=== PATIENT | female | born 1935 | race Caucasian/White ===

== ENCOUNTER 2017-08-09 20:25 | Emergency (ER) | payer OTHER, MEDICAID ==
[~2017-08-09] VITALS: Ht 162.6 cm; Wt 72.1 kg
[2017-08-09 20:36] VITALS: Ht 162.6 cm; Wt 72.1 kg
[2017-08-09 23:06] VITALS: BP 147/62
== END 2017-08-09 23:10 | disposition home or self-care (01) ==
LOC: ED 20:25
DX: S01.311A Laceration without foreign body of right ear, initial encounter (principal); I25.2 Old myocardial infarction; I10 Essential (primary) hypertension; E11.9 Type 2 diabetes mellitus without complications; W01.0XXA Fall on same level from slipping, tripping and stumbling without subsequent striking against object, initial encounter; Y93.89 Activity, other specified; Y92.89 Other specified places as the place of occurrence of the external cause; Y99.8 Other external cause status
CPT/HCPCS: J2001

== ENCOUNTER 2019-03-18 12:07 | Inpatient (IN) | payer OTHER ==
[~2019-03-18] VITALS: Ht 147.3 cm; Wt 53.5 kg
[2019-03-18 12:11] VITALS: Ht 147.3 cm; Wt 53.5 kg
--- NOTE | 2019-03-18 12:20 | NUR ---
PT BIB adult sister from home for vomiting blood episode last night,denies any pains,is noemi pizarro.awaits er md evaluations/assessments.
--- NOTE | 2019-03-18 12:39 | NUR ---
LASHAY BLAKE AT BEDSIDE FOR EVALUATIONS/assessments.noemi pizarro.adult sister bedside.awaits reevaluations.
--- NOTE | 2019-03-18 13:06 | NUR ---
IV ACCESS STARTED ASEPTICALLY WITH BLOOD DRAWN/SENT TO LAB,FLUSHED WITH NS.PT TOLRATED PROCEDURES WITH NO INCIDENTS.awaits vtest results,reevaluations.adult sister bedside.
[2019-03-18 13:17] LABS: BASOPHIL % 1.7 % (0-2); PLATELET COUNT 247 x10^3mcL (130-400)
[2019-03-18 13:18] LABS: RED CELL DISTRIBUTION WIDTH 17.2 % (11.5-14.5)
[2019-03-18 13:31] LABS: ALKALINE PHOSPHATASE 44 U/L (46-116); ALT/SGPT 16 U/L (14-59); AST/SGOT 14 U/L (15-37); BILIRUBIN TOTAL 0.21 mg/dL (0.20-1.00); CALCIUM 8.8 mg/dL (8.5-10.1); CARBON DIOXIDE 25.5 mmol/L (21-32); CHLORIDE SERUM 109 mmol/L (98-107); CREATININE SERUM 1.9 mg/dL (0.6-1.0); GLUCOSE SERUM 60 mg/dL (74-106); POTASSIUM SERUM 4.4 mmol/L (3.5-5.1); SODIUM SERUM 144 mmol/L (136-145); TOTAL PROTEIN, SERUM 6.7 g/dL (6.4-8.2)
[2019-03-18 13:36] LABS: ALBUMIN 3.3 g/dL (3.4-5.0)
--- NOTE | 2019-03-18 13:40 | NUR ---
TAKEN TO CT SCAN
--- NOTE | 2019-03-18 14:01 | NUR ---
PT BACK FROM ct test area via stretcher.aao,nad.pt tlerated procedures with no incidents.awaits test results,reevaluations.
[2019-03-18] MEDS ORDERED: PRO30 PO (14:15)
[2019-03-18] MEDS ORDERED: NEU300 PO (14:16)
[2019-03-18] MEDS ORDERED: ISOSORBIDE MONO60 MG PO (14:16)
[2019-03-18] MEDS ORDERED: BENICAR HCT1 TA1 PO (14:16)
[2019-03-18] MEDS ORDERED: ASPIRIN FOR CHI81 M1 PO (14:17)
[2019-03-18] MEDS ORDERED: CILOSTAZOL100 M1 PO (14:18)
[2019-03-18] MEDS ORDERED: HYDRALAZINE HCL25 MG PO (14:18)
[2019-03-18] MEDS ORDERED: SYNTHROID0.088 MG PO (14:19)
--- NOTE | 2019-03-18 14:19 | NUR ---
LASHAY BLAKE at [facility] for reevaluations.noemi pizarro.adult daughter bedside.awaits reevaluations.
[2019-03-18] MEDS ORDERED: AFREZZA1 EAC1 (14:22)
--- NOTE | 2019-03-18 15:45 | NUR ---
RESTING ER # [id number] HOB @ 45 DEGREES SR UP,MONITORS ON.BLOOD TRANSFUSION PER ER MD ORDERS IS STARTED.noemi pizarro.adult daughter bedside.awaits reevaluations.
--- NOTE | 2019-03-18 16:33 | NUR ---
BLOOD TRANSFUSION IN PROGRESS,JOSELITO TOVAR.PT TOLERATING PROCEDURES so far.adult daughter at bedside.awaits md consult,bed assignment,reevaluations.
--- NOTE | 2019-03-18 16:43 | NUR ---
pt endorsed to/accepted by ryan reyes.awaits transport services,reevaluations.
[2019-03-18 17:26] VITALS: BP 187/72
--- NOTE | 2019-03-18 17:33 | NUR ---
ASSUMED CARE OF PATIENT. RECIEVED PATIENT ON PRBC AT 100ML/HR. NO COMPLAINTS OF PAIN OR DISCOMFORT. NO APPARENT DISTRESS NOTED. FAMILY AT BEDSIDE. WILL CONTINUE TO MONITOR.
--- NOTE | 2019-03-18 17:42 | NUR ---
RECEIVED PT FROM ER, PT ADMIT FOR GI BLEED. PT IS A/O X4, VERBAL RESPONSIVE, ABLE TO TELL WHAT SHE NEEDS. LUNG SOUND CLEAR BILATERAL, NO COUGH, NO SOB, PT IS ON TELE 8, NSR, DENY ANY CHEST PAIN OR DISCOMFORT, BOWEL SOUND PRESENT ALL 4 QUADRANTS, NO DISTENTION, PT STATE SHE HAVE VOMITING BRIGHT RED BLOOD IN THIS MORNING 4 AM, NO MORE N/V AFTER THAT, DIARRHEA SINCE YESTERDAY BUT DENY ANY BLOODY OR BLACK STOOL NOTED. PEDAL PULSE PRESENT BOTH FEET, NO EDEMA, IV AT RIGHT AC NO LEAKING, NO INFILTRATION. PT CONTINUE BLOOD TRANSFUSION AT THIS MOMENT. ALL ADLS ASSIST, ALL NEED MET, CALL LIGHT IN REACH, WILL CONTINUE TO MONITOR.
--- NOTE | 2019-03-18 17:44 | NUR ---
SCHEDULED HYDRALAZINE ADMINSITERED EARLY DUE TO ELEVATED BP
--- NOTE | 2019-03-18 18:42 | NUR ---
PATIENT BP 220/76. NOTIFIED. ORDER FOR 0.1 MG CLONIDINE.
--- NOTE | 2019-03-18 18:56 | NUR ---
PATIENT RESTING IN BED GETTING LABS DRAWN FROM LAB. NO COMPLAINTS OF PAIN AT THIS TIME. 2ND BAG OF PRBC HELD FOR S/P CLONIDINE BP. WILL ENDORSE CARE TO ONCOMING RN.
[2019-03-18 19:02] LABS: BASOPHIL % 0.4 % (0-2); PLATELET COUNT 223 x10^3mcL (130-400)
[2019-03-18 19:03] LABS: RED CELL DISTRIBUTION WIDTH 16.2 % (11.5-14.5)
--- NOTE | 2019-03-18 19:15 | NUR ---
RECEIVED PT FROM DAY SHIFT RN. PT IS ALERT AND ORIENTED TO PERSON PLACE TIME AND SITUATION AND IS ABLE TO FOLLOW COMMANDS. PT HAS POOR VISION IN LEFT EYE BUT STATES SHE IS STILL ABLE TO SEE OK. ROOM FREE OF CLUTTER. ENCOURAGED PT TO USE THE CALL IF ASSISTANCE IS NEEDED WHEN AMBULATING. PT DENIES CHEST PAIN OR SHORTNESS OF BREATH ON ROOM AIR. THERE ARE NO USE OF ACCESSORY MUSCLES OR LABORED BREATHING ON ASSESSMENT. TELE #[address] PT DENIES CHEST PAIN AT THIS TIME. PT DENIES ANY ABD PAIN AND STATES SHE HAS NOT HAD A RECENT EPISODE OF VOMITTING BLOOD. PT IS AMBULATORY, R LAC IV CLEAN DRY AND INTACT AT THIS TIME. SAFETY MEASURES ARE IN PLACE. BED IN THE LOWEST POSITION. CALL LIGHT WITHIN REACH. WILL INITIATE BLOOD TRANSFUSION. WILL CONTINUE TO MONITOR.
--- NOTE | 2019-03-18 19:49 | NUR ---
PT'S BP: 106/54N HR: 79. PT DENIES ANY PAIN AT THIS TIME. WILL INITIATE SECOND UNIT OF BLOOD.
--- NOTE | 2019-03-18 20:10 | NUR ---
INITIATED BLOOD TRANSFUSION. PRE VITALS: BP 151/63 HR 78 RESP 14 PO2 99 TEMP 98.3M PT TOLERATING WELL. DIZZINESS DIZZINESS, CHILLS, OR SOB/CHEST PAIN.
--- NOTE | 2019-03-18 20:25 | NUR ---
PT TOLERATING BLOOD TRANSFUSION WELL. 15 MIN VITAL SIGNS: BP 167/68 HR 75 TEMP 98.1 RESP 16 PO2 98%
[2019-03-18 21:44] VITALS: BP 167/59
--- NOTE | 2019-03-18 21:49 | NUR ---
PT RESTING IN BED. NO USE OF ACCESSORY MUSCLES OR LABORED BREATHING. NO SYMPTOMS OF TRANSFUSION REACTION NOTED.
--- NOTE | 2019-03-18 23:30 | NUR ---
COMPLETED BLOOD TRANSFUSION. NO ADVERSE REACTIONS NOTED, VITAL SIGNS ARE STABLE. PT DENIES SOB OR CHEST PAIN. NO URITICARIA NOTED OR SIGNS/SYMPTOMS OF TRANSFUSION REACTION. WILL AWAIT MORNING LABS FOR NEW HGB/HCT. PT RESTING COMFORTABLLY IN BED. NO USE OF ACCESSORY MUSCLES OR LABORED BREATHING NOTED. PT PLACED BACK ON D5 1/2 NS.
--- NOTE | 2019-03-19 04:11 | NUR ---
PT RESTING IN BED WITH EYES CLOSED. BREATHING IS EVEN AND UNLABORED, PT DOES NOT APPEAR TO BE IN ANY DISTRESS AT THIS TIME. WILL CONTINUE TO MONITOR.
[2019-03-19 05:30] VITALS: BP 120/60
[2019-03-19 06:21] LABS: BASOPHIL % 0.2 % (0-2); PLATELET COUNT 195 x10^3mcL (130-400)
[2019-03-19 06:31] LABS: CALCIUM 8.2 mg/dL (8.5-10.1); CARBON DIOXIDE 25.1 mmol/L (21-32); CHLORIDE SERUM 109 mmol/L (98-107); CREATININE SERUM 1.7 mg/dL (0.6-1.0); GLUCOSE SERUM 135 mg/dL (74-106); POTASSIUM SERUM 3.9 mmol/L (3.5-5.1); SODIUM SERUM 143 mmol/L (136-145)
[2019-03-19 06:49] LABS: RED CELL DISTRIBUTION WIDTH 15.7 % (11.5-14.5)
[2019-03-19 07:32] VITALS: BP 172/68
--- NOTE | 2019-03-19 07:37 | NUR ---
PT AA/OX4, FOLLOWS COMPLEX COMMANDS, RESPONDS TO VERBAL STIMULI, FACE SYMMETRICAL. SPEECH CLEAR. PT SITTING UP IN BED BRUSHING TEETH. NPO EXCEPT MEDS. PT DENIES PAIN. DENIES N/V AT THIS TIME. BP ELEVATED, WILL GIVE SCHEDULED AM BP MEDS. PT DENIES MARQUEZ. NO DIZZINESS. NO CHEST PAIN. NSR ON TELE 18, HR 72. CALM/COOPERATIVE. IV WNL TO RAC, PATENT AND FLUSHES WELL. IV FLUIDS FLOWING. FALL PRECAUTIONS IN PLACE. INSTRUCTED TO USE CALL LIGHT TO CALL FOR ASSISTANCE. VERBALIZED UNDERSTANDING. NO SOB ON ROOM AIR. BED IN LOW POSITION. CALL LIGHT WITHIN REACH. WILL CONTINUE TO MONITOR.
[2019-03-19 10:25] VITALS: BP 136/48
--- NOTE | 2019-03-19 10:32 | NUR ---
PT TAKEN FOR PROCEDURE. NO S/S OF ACUTE DISTRESS. VS STABLE. ENDORSED TO WIND TURBINE SHEET METAL WORKER BERNARDO. TAKEN BY ELSA.
[2019-03-19 12:01] VITALS: BP 129/49
--- NOTE | 2019-03-19 12:05 | NUR ---
PT BACK FROM PROCEDURE. AA/OX4. VS STABLE. NO S/S OF ACUTE DISTRESS. NO SOB ON ROOM AIR. O2 SAT 100%. RR EVEN/UNLABORED. CHEST EXPANSION SYMMETRICAL. DENIES PAIN. NO N/V. IV WNL, NO REDNESS, NO SWELLING, NO INFILTRATION. PATENT AND FLUSHES WELL. CALM/COOPERATIVE. BED IN LOW POSITION. FALL PREC IN PLACE. CALL LIGHT WITHIN REACH. WILL CONTINUE TO MONITOR.
[2019-03-19 16:46] VITALS: BP 151/53
--- NOTE | 2019-03-19 18:22 | NUR ---
ASSISTED PT ONTO BEDPAN. BM X1, LOOSE, BROWN. VOID X1. PERICARE PROVIDED. NO S/S OF ACUTE DISTRESS. NO ABD. PAIN. NO N/V. NO SOB ON ROOM AIR. NO CHEST PAIN. CALM/COOPERATIVE. FALL PREC IN PLACE. IV WNL TO RAC, IV FLUIDS FLOWING. BED IN LOW POSITION. CALL LIGHT WITHIN REACH. WILL ENDORSE TO ONCOMING SHIFT.
--- NOTE | 2019-03-19 20:21 | NUR ---
PT'S IN BED AAOX4 NO ACUTE DISTRESS NOTED, LUNG SOUNDS CTA , ABD SOFT BS ACTIVE X4. ON TELE NUMBER 18 THAT SHOWS NS HR 78. PIV TO RAC INTACT INFUSING WELL , , PT DENY PAIN AT THE MOMENT , CALL LIGHT WITHIN PT'S REACH , WILLCON'T TO MONITOR AND ASSIST PT WITH CARE .
[2019-03-19 20:54] VITALS: BP 146/54
--- NOTE | 2019-03-20 01:24 | NUR ---
PT'S IN BED AWAKE MULTIPLE WATERY YELLOW STOOL NOTED, PT'S ON PREP FOR COLONOSCOPY IN AM , WILL CON'T TO MONITOR PT CLOSELY.
--- NOTE | 2019-03-20 02:06 | NUR ---
I HAVE REVIEWED THE DATA COLLECTION BY LEASE BROKER (NAME):LINA OWENS ENTERED ON (DATE/TIME): I CONCUR WITH THE DATA AND ANY EXCEPTIONS OR COMMENTS ARE LISTED BELOW:
[2019-03-20 05:35] VITALS: BP 186/82
--- NOTE | 2019-03-20 06:09 | NUR ---
NO CHANGES OF CONDITION NOTED, ALL DUE MEDS GIVEN NO REACTION NOTED , LAST BM WAS CLEAR , PIV INTACT INFUSIGN WELL , TELE NSR .
--- NOTE | 2019-03-20 07:30 | NUR ---
RECEIVED PATIENT IN BED, AWAKE, ALERT AND ORIENTED. DENIES ANY PAIN. NPO EXCEPT FOR MEDS FOR COLONOSCOPY TODAY. IVFINFUSING WELL TO RT A/C 20G, SITE PATENT. PATIENT DENIES ANY N/V, PT HAS BEEN HAVING BOWEL PREP, ORDERED. RESP EVEN AND UNLABORED, LUNGS CLEAR ON ROOM AIR. CALL LIGHT WIT[place]IN REACH AND PATIENT INSTRUCTED TO USE FOR ASSIST. TELE 18 NSR WITH DEPRESSED T WAVE.
[2019-03-20 08:12] VITALS: BP 180/73
[2019-03-20 10:03] VITALS: BP 162/60
--- NOTE | 2019-03-20 10:10 | NUR ---
PATIENT'S PLAN OF CARE WAS DISCUSSED AND REVIEWED WITH COMMERCIAL COUNSEL:BUZZ SCHREIBER. I HAVE REVIEWED THE DATA COLLECTION BY COMMERCIAL COUNSEL (NAME):BUZZ SCHREIBER. ENTERED ON (DATE/TIME):03/20/19 AT 0830. I CONCUR WITH THE DATA AND ANY EXCEPTIONS OR COMMENTS ARE LISTED BELOW:
--- NOTE | 2019-03-20 10:50 | NUR ---
PATIENT DOWN TO GI LAB VIA BED AT THIS TIME FOR COLONOSCOPY. WILL CONTINUE TO MONITOR UPON RETURN TO FLOOR.
--- NOTE | 2019-03-20 12:50 | NUR ---
PATIENT RETURNED FROM GI LAB. AWAKE ALERT ABLE TO VERBALIZE NEEDS WELL. IVF HEPLOCKED AT THIS TIME. FAMILY MEMBER AT BEDSIDE. DENIES ANY PAIN OR DISCOMFORT. WILL CONTINUE TO MONITOR.
[2019-03-20 14:43] LABS: BASOPHIL % 0.7 % (0-2); PLATELET COUNT 241 x10^3mcL (130-400)
[2019-03-20 14:45] LABS: RED CELL DISTRIBUTION WIDTH 14.8 % (11.5-14.5)
[2019-03-20 14:50] LABS: CALCIUM 8.4 mg/dL (8.5-10.1); CARBON DIOXIDE 21.8 mmol/L (21-32); CHLORIDE SERUM 110 mmol/L (98-107); CREATININE SERUM 1.3 mg/dL (0.6-1.0); GLUCOSE SERUM 126 mg/dL (74-106); POTASSIUM SERUM 4.1 mmol/L (3.5-5.1); SODIUM SERUM 144 mmol/L (136-145)
[2019-03-20 15:48] VITALS: BP 138/77
--- NOTE | 2019-03-20 18:23 | NUR ---
PATIENT TO D/C HOME. AWAITING FAMILY TO ARRIVE. TOLERATED DIET WELL. NO N/V/D NOTED. DENIES ANY PAIN OR DISCOMFORT.
--- NOTE | 2019-03-20 19:13 | NUR ---
FAMILY HERE TO TAKE PATIENT HOME. HL AND TELE DC'D. PRESCRIPTIONS AND DISCHARGE INSTRUCTIONS GIVEN. EDUCATION PROVIDED. CONDITION APPEARS STABLE.
== END 2019-03-20 19:13 | disposition home or self-care (01) | DRG 811 ==
LOC: ED 12:07 → DU 16:22
PROVIDERS: Emergency Medicine; Internal Medicine Gastroenterology; ADMIT Internal Medicine
PROC: 0W3P8ZZ Control Bleeding in Gastrointestinal Tract, Via Natural or Artificial Opening Endoscopic (ICD-10-PCS; principal; 2019-03-19 10:30)
PROC: 0DBF8ZZ Excision of Right Large Intestine, Via Natural or Artificial Opening Endoscopic (ICD-10-PCS; 2019-03-20 12:00)
DX: D62 Acute posthemorrhagic anemia (principal); K22.6 Gastro-esophageal laceration-hemorrhage syndrome; N17.9 Acute kidney failure, unspecified; K44.9 Diaphragmatic hernia without obstruction or gangrene; I10 Essential (primary) hypertension; I25.10 Atherosclerotic heart disease of native coronary artery without angina pectoris; K63.5 Polyp of colon; K57.30 Diverticulosis of large intestine without perforation or abscess without bleeding; E78.5 Hyperlipidemia, unspecified; E03.9 Hypothyroidism, unspecified; I25.2 Old myocardial infarction; Z68.24 Body mass index [BMI] 24.0-24.9, adult; Z95.1 Presence of aortocoronary bypass graft
CPT/HCPCS: 43235; 45378; 82962; C9113; G0378; J1200; J1610; J2250; J2310; J3010; J3490; J7050; J8597; P9016; Q0092

== ENCOUNTER 2019-07-20 23:57 | Inpatient (IN) | payer OTHER ==
[~2019-07-20] VITALS: Ht 147.3 cm; Wt 49.9 kg
[~2019-07-20 23:57] MED LIST: AFREZZA1 EAC1; ASPIRIN FOR CHI81 M1 PO; BENICAR HCT1 TA1 PO; CILOSTAZOL100 M1 PO; ISOSORBIDE MONO60 MG PO; NEU300 PO; SYNTHROID0.088 MG PO
--- NOTE | 2019-07-21 00:21 | NUR ---
PT ARRIVED VIA PARAMEDICS CC: WEAKNESS AND DIZZINESS. SHE IS A/O X4. RESP EVEN/UNLABORED. SHE HAD A FALL 3 DAYS AGO AND HAS 3 MARIA L AND BRUSING TO BACK OF HEAD. NO S/ OF INFECTION. DENIES PAIN AT THIS TIME. DENIES CP AND MARQUEZ. MD AT BEDSIDE.
--- NOTE | 2019-07-21 01:04 | NUR ---
STRAIGHT CATH PT DUE TO MD ORDER TO CATH FOR UA
[2019-07-21 01:05] LABS: BASOPHIL % 0.4 % (0-2); PLATELET COUNT 217 x10^3mcL (130-400)
[2019-07-21 01:07] LABS: RED CELL DISTRIBUTION WIDTH 15.4 % (11.5-14.5)
--- NOTE | 2019-07-21 01:22 | NUR ---
PT BACK FROM CT. PT DENIES PAIN. PT IN NO ACUTE DISTRESS. ALL NEEDS MET AT THIS TIME. WILL CONT TO MONITOR.
--- NOTE | 2019-07-21 01:29 | NUR ---
REPORT GIVEN TO BHUPINDER DELUCA
[2019-07-21 01:39] LABS: ALKALINE PHOSPHATASE 73 U/L (46-116); ALT/SGPT 29 U/L (14-59); AST/SGOT 21 U/L (15-37); BILIRUBIN TOTAL 0.54 mg/dL (0.20-1.00); CALCIUM 9.3 mg/dL (8.5-10.1); CARBON DIOXIDE 30.2 mmol/L (21-32); CHLORIDE SERUM 98 mmol/L (98-107); CHOLESTEROL 180 mg/dL (<200); CREATININE SERUM 2.4 mg/dL (0.6-1.0); GLUCOSE SERUM 191 mg/dL (74-106); HDL CHOLESTEROL 55 mg/dL (40-60); LIPASE 157 IU/L (73-393); MAGNESIUM 2.2 mg/dL (1.8-2.4); POTASSIUM SERUM 3.7 mmol/L (3.5-5.1); SODIUM SERUM 139 mmol/L (136-145); TOTAL PROTEIN, SERUM 7.2 g/dL (6.4-8.2)
[2019-07-21 01:43] LABS: ALBUMIN 3.3 g/dL (3.4-5.0)
[2019-07-21 01:45] LABS: microscopic required? YES; urine erythrocyte TRACE (NEGATIVE)
--- NOTE | 2019-07-21 02:25 | NUR ---
PT MEDICATED PER MD ORDER. PT VERBALIZED UNDERSTANDING OF MEDICATION PRIOR TO ADMINISTRATION.
[2019-07-21] MEDS ORDERED: SYN15 PO (02:29)
[2019-07-21] MEDS ORDERED: HYDRALAZINE HCL25 MG PO (02:30)
[2019-07-21] MEDS ORDERED: FUROSEMIDE20 MG PO (02:31)
[2019-07-21] MEDS ORDERED: ISOSORBIDE MONO60 MG PO (02:31)
[2019-07-21] MEDS ORDERED: PANTOPRAZOLE SO40 M1 PO (02:32)
[2019-07-21] MEDS ORDERED: HUMALOG100 UNIT/1 SQ (02:33)
[2019-07-21] MEDS ORDERED: NITROGLYCERIN0.4 MG SL (02:33)
[2019-07-21 03:13] LABS: AMPHETAMINE QUAL UR NONE DETECTED (See below)
--- NOTE | 2019-07-21 03:31 | NUR ---
PT IS SLEEPING IN GURNEY, GOOD CHEST RISE AND FALL NOTED, RESP E/U, NAD NOTED.
--- NOTE | 2019-07-21 03:40 | NUR ---
REPORT CALLED TO YOSI QUINONES TO ASSUME CARE OF PT.
[2019-07-21 04:27] VITALS: BP 150/48
--- NOTE | 2019-07-21 04:42 | NUR ---
RECEIVED PT FROM ED, C/O INTERMITTENT SHOOTING BILATERAL ARM PAIN 04/10, WILL MEDICATE PER EMAR. A/O X4. TELE #3 SHOWING SINUS RHYTHM, DENIES CHEST PAIN. PULSES PALPABLE IN ALL EXTREMITIES, NO EDEMA NOTED. LUNG SOUNDS CTA BILATERALLY, DENIES SOB, RECEIVING O2 VIA NC AT 2L. BOWEL SOUNDS HYPOACTIVE, LAST BM 07/18/19. VOIDING WELL. GENERALIZED WEAKNESS. LACERATION TO POSTERIOR HEAD WITH MARIA L X3, ROHITH. IV PATENT AND INTACT. BED IN LOWEST POSITION, SIDE RAILS UP X2, CALL LIGHT WITHIN REACH. ORIENTED PT TO ROOM. WILL CONTINUE TO MONITOR.
[2019-07-21 06:32] LABS: BASOPHIL % 0.3 % (0-2); PLATELET COUNT 185 x10^3mcL (130-400)
--- NOTE | 2019-07-21 06:36 | NUR ---
PT SLEPT PERIODICALLY THROUGHOUT NIGHT, NO ACUTE DISTRESS. ALL NEEDS MET AND ATTENDED TO. NO SIGNIFICANT CHANGES. IV PATENT AND INTACT. BED IN LOWEST POSITION, SIDE RAILS UP X2, CALL LIGHT WITHIN REACH. WILL ENDORSE CARE TO ONCOMING NURSE.
[2019-07-21 06:42] LABS: RED CELL DISTRIBUTION WIDTH 15.3 % (11.5-14.5)
--- NOTE | 2019-07-21 07:00 | NUR ---
RECEIVED REPORT FROM STACIE DELUCA AT BEDSIDE, PT RESTING IN BED IN NO ACUTE DISTRESS
[2019-07-21 07:04] LABS: CALCIUM 8.8 mg/dL (8.5-10.1); CARBON DIOXIDE 28.1 mmol/L (21-32); CHLORIDE SERUM 99 mmol/L (98-107); CREATININE SERUM 2.4 mg/dL (0.6-1.0); GLUCOSE SERUM 299 mg/dL (74-106); MAGNESIUM 2.1 mg/dL (1.8-2.4); PHOSPHOROUS 4.7 mg/dL (2.5-4.9); POTASSIUM SERUM 3.3 mmol/L (3.5-5.1); SODIUM SERUM 138 mmol/L (136-145)
--- NOTE | 2019-07-21 07:30 | NUR ---
RECEIVED PT RESTING IN BED, IN NO ACUTE DISTRESS, VERBAL, ABLE TO MAKE NEEDS KNOWN, DENIED PAIN/DISCOMFORT, DENIED MARQUEZ/CP/PALPITATION, PERRLA, RESP EVEN, NO SOB/COUGH, 2L/MIN, NC, SEE SHIFT ASSESSMENT, IV PATENT AND INFUSIGN WELL, DRESSING CDI, ASSISTED TO USE BEDPAN, VOID X 1, ALL NEEDS ADDRESSED AT THIS TIME, NPO FOR REGIS CONNELLY PER MD, SAFETY PRECAUTION FOLLOWED, CONTINUE TO MONITOR
[2019-07-21 08:53] VITALS: BP 132/52
--- NOTE | 2019-07-21 09:09 | NUR ---
AM MEDs GIVEN PER MD ORDER VIA EMAR, TOLERATED WELL, NO ASE NOTED AT THIS TIME, EDUCATED PT R/T MEDs, ASE AND MONITOR, VERBALLY UNDERSTANDING, ALL NEEDS ADDRESSED, SAFETY PROTOCOL MAINTAINED, CONTINUE TO MONTIOR
--- NOTE | 2019-07-21 12:09 | NUR ---
IV TO RAC INFILTRATED, PT REPORTED NO PAIN/PRESSURE AT AREA, IV REMOVED, IV CATH TIP INTACT, NEW IV STARTED TO LFA, 20G, FLUSHING WELL, CONTINUE W/ FLUID ORDER, PT RESTING IN BED IN NO ACUTE DISTRESS, PT MADE AWARE OF HAVING CCHO DIET AT LUNCH, CHARGE NURSE CONCHA MADE AWARE
[2019-07-21 12:20] VITALS: BP 121/54
--- NOTE | 2019-07-21 15:08 | NUR ---
PT RESTING IN BED, IN NO ACUTE DISTRESS AT THIS TIME, SAFETY PROTOCOL FOLLOWED, ASSISTED W/ BEDPAN, VOID X 1, SKIN C/D/W, IV INFUSING WELL, DRESSING CDI, ALL NEEDS ADDRESSED AT THIS TIME, CONTINUE TO MONITOR
[2019-07-21 16:19] VITALS: BP 149/43
--- NOTE | 2019-07-21 17:50 | NUR ---
PT RESTING IN BED, IN NO ACUTE DISTRESS, VERBAL, ABLE TO MAKE NEEDS KNOWN, RESP EVEN, NO SOB/COUGH, DENIED PAIN/DISCOMFORT, DENIED CP/PALPITATION, TOLERATED DINNER WELL, IV PATENT AND INFUSING WELL, DRESSING CDI, ALL NEEDS ADDRESSED, SAFETY PROTOCOL FOLLOWED, WILL ENDORSE TO ONCOMING RN
--- NOTE | 2019-07-21 19:37 | NUR ---
PT CURRENTLY RESTING IN BED, NO ACUTE DISTRESS. A/O X4. DENIES DIZZINESS AT THIS TIME. TELE #3 SHOWING SINUS RHYTHM, DENIES CHEST PAIN. PULSES PALPABLE IN ALL EXTREMITIES, NO EDEMA NOTED. LUNG SOUNDS CTA BILATERALLY, DENIES SOB. BOWEL SOUNDS HYPOACTIVE, LAST BM 07/18/19, DENIES ABD PAIN. VOIDING WELL. GENERALIZED WEAKNESS. POSTERIOR HEAD LACERATION S/P FALL AT HOME, MARIA L X3 CEMENT FITTINGS MAKER. IV PATENT AND INTACT. BED IN LOWEST POSITION, SIDE RAILS UP X2, CALL LIGHT WITHIN REACH. WILL CONTINUE TO MONITOR.
[2019-07-21 19:45] VITALS: BP 146/49
--- NOTE | 2019-07-22 01:47 | NUR ---
ASSIST PT ONTO BEDPAN, VOIDING WELL, YELLOW URINE NOTED. PT C/O INSOMNIA, DR JUNG INFORMED, MEDICATED PER EMAR. PT CURRENTLY RESTING IN BED, NO ACUTE DISTRESS. WILL CONTINUE TO MONITOR.
[2019-07-22 05:53] VITALS: BP 159/48
--- NOTE | 2019-07-22 07:00 | NUR ---
RECEIVED REPORT FROM STACIE DELUCA AT BEDSIDE, PT SLEEPING IN BED IN NO ACUTE DISTRESS
[2019-07-22 07:03] LABS: BASOPHIL % 0.5 % (0-2); PLATELET COUNT 164 x10^3mcL (130-400)
[2019-07-22 07:18] LABS: RED CELL DISTRIBUTION WIDTH 15.5 % (11.5-14.5)
[2019-07-22 07:33] LABS: CALCIUM 8.8 mg/dL (8.5-10.1); CARBON DIOXIDE 26.2 mmol/L (21-32); CHLORIDE SERUM 106 mmol/L (98-107); CREATININE SERUM 1.8 mg/dL (0.6-1.0); GLUCOSE SERUM 118 mg/dL (74-106); MAGNESIUM 1.9 mg/dL (1.8-2.4); PHOSPHOROUS 2.9 mg/dL (2.5-4.9); POTASSIUM SERUM 3.7 mmol/L (3.5-5.1); SODIUM SERUM 141 mmol/L (136-145)
--- NOTE | 2019-07-22 07:51 | NUR ---
RECEIVED PT RESTING IN BED, IN NO ACUTE DISTRESS, VERBAL, ABLE TO MAKE NEEDS KNOWN, NO FACIAL DROOP/SLURRED SPEECH, DENIED PAIN/DISCOMFORT, DENIED MARQUEZ/CP/PALPITATION, PERRLA, RESP EVEN, NO SOB/COUGH, RA, TELE #3, HR-75, SEE SHIFT ASSESSMENT, IV PATENT AND INFUSIGN WELL, DRESSING CDI, ALL NEEDS ADDRESSED AT THIS TIME, [place] OSTE[employer] [facility] DIET, STANDARD PRECAUTION, SAFETY PRECAUTION FOLLOWED, CONTINUE TO MONITOR
--- NOTE | 2019-07-22 11:17 | NUR ---
PT WANTED TO LEAVE AMA, COMMUNICATIONS REPRESENTATIVE BHUPINDER SUGGS MADE AWARE, CHARGE NURSE CONCHA MADE AWARE, PT MADE AWARE TO NOTIFY RN WHEN FAMILY ARRIVE TO P/U, VERBALL UNDERSTANDING, PT SITTING IN CHAIR AT BEDSIDE, IN NO ACUTE DISTRESS, CONTINUE TO MONITOR
[2019-07-22 12:32] VITALS: BP 155/70
--- NOTE | 2019-07-22 12:36 | NUR ---
PT DECIDED TO STAY ONE MORE NIGHT FOR OBSERVATION, BIAS CUTTING MACHINE OPERATOR VERTICAL BHUPINDER SUGGS MADE AWARE. CHARGE NURSE MADE AWARE, TP TOLERATED LUNCH WELL, IN NO ACUTE DISTERSS AT THIS TIME, BS CHECKED, INSULIN GIVEN PER SLIDING SCALE, EDUCATED PT R/T DM CONDITION, INSULIN, ASE AND MONITOR, VERBALLY UNDERSTANING, CONTINUE TO MONITOR
[2019-07-22 15:06] VITALS: Ht 147.3 cm; Wt 49.9 kg
[2019-07-22 15:40] VITALS: BP 134/72
--- NOTE | 2019-07-22 16:24 | NUR ---
PT SLEEPING IN BED, IN NO APPARENT PAIN/DISTRESS, IV PATENT AND INFUSIGN WELL, DRESSIGN CDI, ALL NEEDS ADDRESSED AT THIS TIME, SAFETY PROTOCOL FOLLOWED, CONTINUE TO MONITOR
[2019-07-22 17:41] VITALS: BP 148/66
--- NOTE | 2019-07-22 17:59 | NUR ---
PT RESTING IN BED, TOLERATED DINNER WELL, VERBAL, IN NO ACUTE DISTRESS, DENIED PAIN/DISCOMFORT, NO FACIAL DROOP/SLURRED SPEECH, DENIED N/V, DENIED MARQUEZ/DIZZINESS, RESP E/U, RA, MEDSURG, IV PATENT AND INFUSING WELL, DRESSING CDI, ALL NEEDS ADDRESSED, SAFETY PROTOCOL MAINTAINED, WILL ENDORSE TO KENDELL DELUCA
--- NOTE | 2019-07-22 20:00 | NUR ---
PT A/A/O X4. DENIES DIZZINESS AND HEADACHE THUS FAR. 3 MARIA L NOTED ON THE BACK OF THE HEAD BUSINESS SYSTEMS MANAGER. BREATH SOUNDS CLEAR. BREATHING EVEN AND UNLABORED ON ROOM AIR. DENIES CHEST PAIN AND PRESSURE. BOWEL SOUNDS ACTIVE. NO C/O N/V AND ABDOMINAL PAIN. IV INTACT ON THE LEFT FOREARM INFUSING WITH NS AT 75 ML/HR. MADE PT COMFORTABLE. PLACED CALL LIGHT WITH IN REACH. WILL CONTINUE TO MONITOR.
[2019-07-22 21:36] VITALS: BP 144/53
[2019-07-23] VITALS (7 sets, daily range): BP systolic 128–207; BP diastolic 49–102
--- NOTE | 2019-07-23 02:14 | NUR ---
PT C/O BEING WIDE AWAKE AND NOT BEING ABLE TO SLEEP. DR. JUNG NOTIFIED. DR. JUNG ORDERED BENADRYL IVP. PT WAS GIVEN BENADRYL IVP. PT TOLERATED IT WELL. WILL CONTINUE TO MONITOR.
--- NOTE | 2019-07-23 06:40 | NUR ---
PATIENTS LOWEST BLOOD PRESSURE 183/74 HR 79. PT ASSYMPTOMATIC GAVE PT ADALAT PO AND HYDRALAZINE PO EARLY. DR. ERICH GUTIERREZ. KRANTHI TO THE AM NURSE ACCORDINGLY.
[2019-07-23 07:03] LABS: CALCIUM 8.8 mg/dL (8.5-10.1); CARBON DIOXIDE 30.5 mmol/L (21-32); CHLORIDE SERUM 106 mmol/L (98-107); CREATININE SERUM 1.6 mg/dL (0.6-1.0); GLUCOSE SERUM 116 mg/dL (74-106); POTASSIUM SERUM 3.5 mmol/L (3.5-5.1); SODIUM SERUM 142 mmol/L (136-145)
[2019-07-23 07:13] LABS: BASOPHIL % 0.6 % (0-2); PLATELET COUNT 179 x10^3mcL (130-400)
[2019-07-23 07:26] LABS: RED CELL DISTRIBUTION WIDTH 15.6 % (11.5-14.5)
--- NOTE | 2019-07-23 07:30 | NUR ---
PT ENDORSE TO ME THIS MORINING, LAYING IN BED RESTING. AA/O X4 /BREATHING EVEN AND UNLABOREDO ON RA/ NO ACUTE RESP DISTRESS OR SOB NOTED. PER NIGHT NURSE BP BEEN HIGH AND MEDICATED PER EMAR. MEDSURG/ DENIES ANY CP OR PRESSURE. GEN WEAKNESS/ KNOWS TO CALL FOR ASSIST. BRP WITH ASSIST. 3 MARIA L BACK OF HEAD FROM FALL AT HOME/ ROHITH. DENIES ANY PAIN OR DISCOMFORT AT THIS TIME. IV TO THE LFA INTACT AND PATENT/ INFUSING AT 75 ML/HR, NO REDNESS OR SWELLING NOTED . CALL LIGHT IN REACH. WILL CONTINUE TO MONITOR.
--- NOTE | 2019-07-23 14:25 | NUR ---
NEW IV TO THE RFA INTACT AND PATENT. TOLERATED 100% OF LUNCH. WILL CONTINUE TO MONITOR.
--- NOTE | 2019-07-23 14:53 | NUR ---
PT BACK FROM OR, AA/O X4 BREATHING EVEN AND UNLABORED ON RA, NO ACUTE RESP DISTRESS OR SOB NOTED. X4 ABD INCISION NOTED WITH BANDAID INTACT/ NO NEW DARINGAGE NOTED. BY HER SIDE. VS: 121/66 ,MAP 85, RESP 16, 96 % ON RA. WILL MEDICATED PER EMAR.
--- NOTE | 2019-07-23 18:17 | NUR ---
PT TOLERATED 100 % OF DINNER. DENIES ANY DIZZINESS OR DISCOMFORT AT THIS TIME. NEW IV TO THE RFA INTACT AND PATENT INFUSING AT 75ML/HR, NO REDNESS OR SWELLING NOTED. WILL ENDORSE TO INCOMING RN.
--- NOTE | 2019-07-23 19:20 | NUR ---
CARE ASSUMED FROM OUTGOING RN. PT RESTING COMFORTABLY IN BED. NO ACUTE DISTRESS NOTED. EVEN AND UNLABORED RESPIRATIONS ON RA. MEDSURG PT. IV PATENT AND INTACT RUNNING FLUIDS PER EMAR. MARIA L TO BACK OF HEAD INTACT, NO BLEEDING NOTED, ROHITH. NO C/O PAIN OR DIZZINESS AT THIS TIME. BED IN LOWEST POSITION. SIDE RAILS UPX2. CALL LIGHT WITHIN REACH. WILL CONTINUE TO MONITOR.
--- NOTE | 2019-07-24 01:04 | NUR ---
PT RESTING COMFORTABLY IN BED WITH EYES CLOSED. NO ACUTE DISTRESS NOTED. EVEN AND UNLABORED RESPIRATIONS ON RA. IV PATENT AND INTACT RUNNING FLUIDS PER EMAR. BED IN LOWEST POSITION. SIDE RAILS UPX2. CALL LIGHT WITHIN REACH. WILL CONTINUE TO MONITOR.
--- NOTE | 2019-07-24 06:11 | NUR ---
PT SLEPT IN INTERVALS THROUGHOUT THE SHIFT. ALL NEEDS TENDED TO AND MET. ALL SCHEDULED MEDICATIONS GIVEN. 3 MARIA L TO BACK OF HEAD S/P FALL AT HOME, ROHITH, C/O SORENESS, NO PAIN MEDICATION NEEDED PER PT. BLOOD SUGARS, 249 AND 96, COVERED PER SLIDING SCALE. IV PATENT AND INTACT RUNNING FLUIDS PER EMAR. BED IN LOWEST POSITION. SIDE RAILS UPX2. CALL LIGHT WITHIN REACH. WILL ENDORSE TO ONCOMING SHIFT.
--- NOTE | 2019-07-24 07:34 | NUR ---
RECEIVED PT LYING IN BED WITH EYES CLOSED, EASILY AROUSABLE. BREATHING EQUAL/UNLABORED ON RA. NO ACUTE PAIN/ DISTRESS. IVF RUNNING AT 75 ML/HR. NO REDNESS/ SWELLING TO IV SITE. BED IN LOW POSITION, CALL LIGHT IN REACH, SAFETY PRECAUTIONS IN PLACE. WILL CONTINUE TO MONITOR
[2019-07-24 10:14] VITALS: BP 156/66
[2019-07-24] MEDS ORDERED: ADALAT CC30 MG PO (10:53)
[2019-07-24] MEDS ORDERED: BACTRIM DS1 TAB PO (10:58)
[2019-07-24 11:12] VITALS: BP 156/66
[2019-07-24] MEDS ORDERED: PRO30 PO (11:19)
[2019-07-24] MEDS ORDERED: HYDRALAZINE HCL25 MG PO (11:19)
--- NOTE | 2019-07-24 12:10 | NUR ---
PT LYING IN BED A/A, BREATHING EQUAL/UNLABORED ON RA. NO ACUTE PAIN/ DISTRESS. IVF RUNNING AT 75 ML/HR. NO REDNESS/ SWELLING TO IV SITES. BED IN LOW POSITION, CALL LIGHT IN REACH, SAFETY PRECAUTIONS IN PLACE. WILL CONTINUE TO MONITOR
--- NOTE | 2019-07-24 14:50 | NUR ---
PT DC'D HOME. PT A/A, ORIENTED X 4, BREATHING EQUAL/UNLABORED ON RA, NO ACUTE PAIN/ DISTESS. DISCHARGE INSTRUCTIONS/ EDUCATION AND NEW RX'S DISCUSSED WITH PT, PT VERBALIZED UNDERSTANDING. DISCUSSED NEW HOME HEALTH WITH PT, PT STATED THEY ALREADY CONTACTED HER AND AN APPT HAS BEEN SET UP. F/U APPT WITH PCP DISCUSSED WITH PT, PT VERBALIZED UNDERSTANDING. IV DC'D WITH CATHETER INTACT. PT BROUGHT DOWN TO LOBBY IN W/C, ACCOMPANIED BY ASSEMBLER ARRANGER AND FAMILY MEMBER. ALL BELONGINGS WITH PT
== END 2019-07-24 14:50 | disposition home or self-care (01) | DRG 917 ==
LOC: ED 23:57 → DU 07-21 03:28 → MU 07-21 03:28 → DU 07-21 03:47 → MU 07-22 14:30
PROVIDERS: Emergency Medicine; ADMIT Family Medicine
DX: T50.901A Poisoning by unspecified drugs, medicaments and biological substances, accidental (unintentional), initial encounter (principal); G92 Toxic encephalopathy; N39.0 Urinary tract infection, site not specified; E46 Unspecified protein-calorie malnutrition; N17.9 Acute kidney failure, unspecified; E87.6 Hypokalemia; I12.9 Hypertensive chronic kidney disease with stage 1 through stage 4 chronic kidney disease, or unspecified chronic kidney disease; N18.3 Chronic kidney disease, stage 3 (moderate); D63.8 Anemia in other chronic diseases classified elsewhere; E03.9 Hypothyroidism, unspecified; I25.10 Atherosclerotic heart disease of native coronary artery without angina pectoris; Y92.89 Other specified places as the place of occurrence of the external cause; Z68.23 Body mass index [BMI] 23.0-23.9, adult; Z95.5 Presence of coronary angioplasty implant and graft
CPT/HCPCS: 82962; 83880; 97110-GP; 97116-GP; 97530-GP; G0378; J0696; J1200; J1956; J7030; Q0092

== ENCOUNTER 2020-09-20 00:44 | Inpatient (IN) | payer OTHER ==
[~2020-09-20] VITALS: Ht 144.8 cm; Wt 52.0 kg
[~2020-09-20 00:44] MED LIST changes: +ADALAT CC30 MG PO; +BACTRIM DS1 TAB PO; +FUROSEMIDE20 MG PO; +HUMALOG100 UNIT/1 SQ; +HYDRALAZINE HCL25 MG PO; +NITROGLYCERIN0.4 MG SL; +PANTOPRAZOLE SO40 M1 PO; +PRO30 PO; +SYN15 PO
[2020-09-20 01:01] VITALS: Ht 144.8 cm; Wt 52.0 kg
--- NOTE | 2020-09-20 01:10 | NUR ---
PT BIB SON, SON IS PRIMARY HISTORIAN. PT SON STS THAT 1.5 HOURS AGO, PT SON FOUND PT HYPOTENSIVE AT 100/40, DARK, THICK MAROON COLORED EMESIS 500CC X1, DIZZINESS, SOREN LEG PAIN, GEN ABD PAIN. PT AAOX4, NAD NOTED, RESP E/U RESTING IN GURNEY AT LOWEST POSITION AND SIDE RAILSX2 FOR SAFETY, SON AT BEDSIDE
--- NOTE | 2020-09-20 01:23 | NUR ---
XRAY AT BEDSIDE
--- NOTE | 2020-09-20 01:24 | NUR ---
PT ACTIVELY VOMITTED RED EMESIS
[2020-09-20 02:17] LABS: BASOPHIL % 0.8 % (0.2-1.3); PLATELET COUNT 206 x10^3mcL (179-408); RED CELL DISTRIBUTION WIDTH 14.4 % (12.3-17.7)
--- NOTE | 2020-09-20 02:34 | NUR ---
PT IN GURNEY SLEEPING, EASY TO AROUSE. IV INFUSIONS RUNNING WELL. PT NAD NOTED, RESP E/U, IN GURNEY AT LOWEST POSITION AND SIDE RAILSX2 FOR SAFETY
[2020-09-20 02:43] LABS: ALKALINE PHOSPHATASE 43 U/L (46-116); ALT/SGPT 22 U/L (14-59); AST/SGOT 22 U/L (15-37); BILIRUBIN TOTAL 0.3 mg/dL (0.20-1.00); CALCIUM 8.9 mg/dL (8.5-10.1); CARBON DIOXIDE 18.3 mmol/L (21-32); CHLORIDE SERUM 102 mmol/L (98-107); CREATININE SERUM 2.3 mg/dL (0.6-1.0); GLUCOSE SERUM 171 mg/dL (74-106); LIPASE 179 IU/L (73-393); SODIUM SERUM 136 mmol/L (136-145)
[2020-09-20 02:46] LABS: ALBUMIN 2.8 g/dL (3.4-5.0); TOTAL PROTEIN, SERUM 5.7 g/dL (6.4-8.2)
--- NOTE | 2020-09-20 03:21 | NUR ---
OCTREOTIDE INFUSION STARTED AT 0302 NOTED TO BE INCORRECT CONCENTRATION--1MG IN 55ML INSTEAD OF 1MG IN 505 ML. INCORRECT CONCENTRATION STOPPED AT 0309. PT RECEIVED APPROXIMATELY 60MCG OVER 7MINUTES. PT ASSESSED AND FOUND TO HAVE NO NEW COMPLAINTS OR CHANGES. ALL OF THE ABOVE REPORTED TO DR. LOZADA. NO NEW ORDERS RECEIVED AT THIS TIME. PER DR LOZADA, OK TO RESTART INFUSION AT CORRECT CONCENTRATION
--- NOTE | 2020-09-20 04:09 | NUR ---
PT BLOOD TRANSFUSION BEGAN AT 0358. PT DOES NOT C/O ANY ADVERSE REACTIONS--PT IS ASLEEP SNORING, EASY TO AROUSE. WILL RECHECK VITAL SIGNS 15MIN POST INFUSION INITIATION AT 0413.
--- NOTE | 2020-09-20 04:13 | NUR ---
INFUSION RATE INCREASED TO 280ML/HR PER MD ORDER
--- NOTE | 2020-09-20 04:25 | NUR ---
PT ARRIVED FROM ED VIA GURNEY. PT INFUSING PRBCS AND APPEARS IN NO DISTRESS. ALERT AND RESPONSIVE. VS 106/48 (90) 95 18 97% RA 97.5. LUNG SOUNDS DIMISHED BILATERALLY. NO EDEMA NOTED. CAP REFILL <3, PULSES STRONG TO BUE AND WEAK TO BLE. SKIN INTACT. NO C/O OF N/V AT THIS TIME. LFA AND RAC 20G INTACT AND PATENT. FC INSERTED AND DRAINING VIA GRAVITY. NO C/O PAIN AT THIS TIME. CALL LIGHT WITHIN REACH. WILL CONT TO MONITOR.
--- NOTE | 2020-09-20 05:15 | NUR ---
REPORT GIVEN TO LUIS DELUCA--ALL QUESTIONS ANSWERED AND CARE ENDORSED. LATE ENTRY FOR NOTE AT 0309.
[2020-09-20 05:20] VITALS: BP 106/48
--- NOTE | 2020-09-20 07:05 | NUR ---
BS 42 AND REPEATED BS LEVEL OF 48. HYPOGLYCEMIC PROTOCOL INITIATED. BS RE-CHECKED: 155.
--- NOTE | 2020-09-20 07:38 | NUR ---
RECEIVED REPORT FROM ASH WAN, PT RESTING IN BED, NO APPARENT ACUTE DISTRESS, WILL RESUME CARE
[2020-09-20 08:00] VITALS: BP 143/54
--- NOTE | 2020-09-20 09:05 | NUR ---
SON CALLED AND UPDATED POC, LAB AND CONDITION, NO FURTHER CONCERN NEEDED WHEN ASKED, PT UPDATED INFO AND POC, RESTING IN BED, NO ACUTE DISTERSS, CN UPDATED, WILL MONITOR
--- NOTE | 2020-09-20 10:46 | NUR ---
BS CHECKED, NOTED 60, REPEATED, NOTED 56, HYPOGLYCERMIA PROTOCOL FOLLOWED, D50 IVP X 1 GIVEN, RECHECKED BS, NOTED 217, PT AWARE, CN UPDATED, DR CENTENO PAGED AND UPDATED
[2020-09-20 11:55] LABS: PLATELET COUNT 130 x10^3mcL (179-408)
[2020-09-20 12:00] VITALS: BP 142/55
[2020-09-20 12:05] LABS: RED CELL DISTRIBUTION WIDTH 14.7 % (12.3-17.7)
[2020-09-20 12:06] LABS: BASOPHIL % 4.1 % (0.2-1.3)
[2020-09-20 12:44] LABS: CALCIUM 8.2 mg/dL (8.5-10.1); CARBON DIOXIDE 27.6 mmol/L (21-32); CHLORIDE SERUM 106 mmol/L (98-107); CREATININE SERUM 2.1 mg/dL (0.6-1.0); GLUCOSE SERUM 202 mg/dL (74-106); POTASSIUM SERUM 4.1 mmol/L (3.5-5.1); SODIUM SERUM 139 mmol/L (136-145)
[2020-09-20 12:47] LABS: ALBUMIN 2.3 g/dL (3.4-5.0)
--- NOTE | 2020-09-20 12:47 | NUR ---
DR FONTANA AT BEDSIDE, EXPLAINED EGD PROCEDRUE, PT AGREED, CONSENT SIGNED, SON CALLED AND AWARE, PT IN STABLE CONDITION, WILL MONITOR
[2020-09-20 13:03] LABS: ALKALINE PHOSPHATASE 31 U/L (46-116); ALT/SGPT 19 U/L (14-59); AST/SGOT 20 U/L (15-37); BILIRUBIN TOTAL 0.38 mg/dL (0.20-1.00); TOTAL PROTEIN, SERUM 4.6 g/dL (6.4-8.2)
--- NOTE | 2020-09-20 13:42 | NUR ---
EGD AT BEDSIDE DONE, PT IN NO ACUTE DISTRESS, VS STABLE, SLEEPING BUT EASILY AROUSAL, NEW ORDER NOTED, PHARM AWARE, CN UPDATED, WILL MONITOR
[2020-09-20 16:00] VITALS: BP 90/49
--- NOTE | 2020-09-20 16:56 | NUR ---
BS CHECKED NOTED 14, REPEATED NOTED 14 AND 31, HYPOGLYCEMIC PROTOCOL FOLLOWED, D50W IVP X 1, OJ GIVEN, RECHECKED BS, NOTED 190, JASON SON CALLED AND UPDATED, AWARE OF EGD RESULT, NO FURTHER CONCERN NEEDED WHEN ASKED, CN UPDATED, WILL MONITOR
--- NOTE | 2020-09-20 16:57 | NUR ---
DR CENTENO PAGED R/T FREQUENT HYPOGLYCERMIA EPISODES, NO CALL BACK AT THIS TIME, WILL F/U
--- NOTE | 2020-09-20 17:00 | NUR ---
DR CENTENO CALLED BACK, AWARE OF EGD RESULT, HYPOGLYCEMIC EPISODES, NNO, CONTINUE TO MONITOR
--- NOTE | 2020-09-20 18:16 | NUR ---
PT RESTING IN BED, NO ACUTE DISTRESS, AXOX4, VERBAL, ABLE TO MAKE NEEDS KNOWN, RA, RESP E/U, TELE, SR, PIV PATENT, DRESSING CDI, FC PATENT, DENIED PAIN/DISCOMFORT, DENIED CP/PALP, ALL NEEDS ADDRESSED, SAFETY PROTOCOL FOLLOWED, WILL ENDORSE TO ONCOMING RN
--- NOTE | 2020-09-20 19:00 | NUR ---
RECIEVED SHIFT REPORT FROM GAURI RN, WILL CONTINUE CARE AND MONITOR
[2020-09-20 19:30] VITALS: BP 217/82
--- NOTE | 2020-09-20 21:00 | NUR ---
SPOKE TO SON,JASON. UPDATED HIM ON PT CONDITION, VITAL SIGNS, MEDICATIONS, AND PLAN OF CARE
--- NOTE | 2020-09-20 21:19 | NUR ---
CALLED DR CENTENO REGARDING CRITICAL LAB VALUES, TROPONIN 0.506, NO NEW ORDERS GVIVEN
[2020-09-20 23:30] VITALS: BP 177/91
[2020-09-21 03:45] VITALS: BP 147/70
--- NOTE | 2020-09-21 07:21 | NUR ---
RECEIVED REPORT FROM RN PM, WILL RESUME CARE
--- NOTE | 2020-09-21 09:26 | NUR ---
PT HAD ECHO AT BEDSIDE
--- NOTE | 2020-09-21 09:45 | NUR ---
TROP 0.365, TRENDING DOWN FROM PREVIOUS RESULT, DR CENTENO PAGED AND AWARE, NNO, CN UPDATED, PT UPDATED, WILL MONITOR
--- NOTE | 2020-09-21 10:12 | NUR ---
DR FONTANA MADE ROUND, AWARE OF BP 160+, NNO, CN UPDATED, WILL MONITOR
--- NOTE | 2020-09-21 11:58 | NUR ---
DR CENTENO PAGED R/T BP 160+, NO LANETTE BACK AT THIS TIME, CN UPDATED, WILL MONITOR
--- NOTE | 2020-09-21 12:07 | NUR ---
DR CENTENO CALLED BACK, LITA GOWERCHLESY FOR CLONIDIN 0.1 MG X 1 PO, PHARM AWARE, PT AWARE
--- NOTE | 2020-09-21 16:00 | NUR ---
ERYTHROMYCINE IVPB, SENNA, AND LACTULOSE GIVEN PER ORDER ON TIME, TOLERATED WELL, WILL MONITOR
--- NOTE | 2020-09-21 16:04 | NUR ---
PT SEEN BY DR SOTELO, DR SOTELO AWARE OF [employer] SYSTEM DOWN AND UNABLE TO REVIEW ECHO RESULT FOR CONSULT, NNO, SAID WILL COME TO SEE PT TOMORROW, CN UPDATED
--- NOTE | 2020-09-21 16:30 | NUR ---
REPORT GIVEN TO TELE/MS RN ANS RESULT OF BS, NO FURTHER CONCERN NEEDED WHEN ASKED, PT SLEEPING BUT EASILY AROUSABLE, ABLE TO FOLLOW VERBAL COMMAND, CALLED SON JASON TO UPDATED POC AND LOCATION OF PT ON TELE/MS UNITS, CN UPDATED, PT TRANSFERRED TO TELE UNITS IN NO ACUTE DISTRESS, VS STABLE
--- NOTE | 2020-09-21 17:20 | NUR ---
REECIEVED PT FROM AM RN, PT IS IN BED AWAKE. PT IS A.O X1 SHE IS ABLE TO STATE HER NAME BUT IS CONFUSED/RAMBLING STATING RANDOM STATEMENTS SHE NEEDS REORIENTATION. SHE IS CURRENTLY ON TELE #26, S1/S2 HEARD, NO COMPLAINTS OF CHEST PAIN. PULSES PALPABLE & STRONG BUE/BLE, NO EDEMA NOTED. SCD'S CURRENTLY ON PATIENT FUNCTIONING PROPERLY, PT IS ON BED REST WITH GENERALIZED WEAKNESS. BREATH SOUNDS CLEAR, ON ROOM AIR TOLERATING WELL SATTING AT 97%, BREATHING E/U, NO SOB OBSERVED. BOWEL SOPUNDS ACTIVE & ABDOMEN NON DISTENDED. PELAYO INSERTED & INTACT DRAINING YELLOW URINE. REDNESS AT THE COCCYX WHERE OPTIFOAM WAS PLACED BY AM RN, CURRENTLY STILL DRY & INTACT. IV TO LFA & RAC INTACT & PATENT CURRENTLY SALINE LOCKED. NO PAIN STATED AT THIS TIME PATIENT HAS NO COCERNS. WILL CONTINUE TO MONITOR, CALL LIGHT WITHIN REACH & BED IN THE LOWEST POSITION.
--- NOTE | 2020-09-21 17:20 | NUR ---
PT ARRIVED ON UNIT AT 1700, ACCOMPANIED BY NURSE. A/OX1, PT IS VERY LETHARGIC, ABLE TO TRACK WITH EYES BUT MUMBLED SPEECH AND UNABLE TO FOLLOW COMMANDS. LUNG SOUNDS CLEAR UPPER LOBES, RHONCHI HEARD THROUGHOUT BASES. PT BREATHING E/U ON RA, IN NO ACUTE RESP DISTRESS. PULSES PALP, NO EDEMA NOTED. PT HAS SCDS, N9O DVT PROPH AT THIS TIME FOR PREVIOUS GI BLEED. BOWEL SOUNDS ACTIVE X4, ABD ROUND, SOFT, NONTENDER TO PALP, INCONTINENT OF BOWEL. PELAYO CATH [address], DRAINING CLEAR, YELLOW URINE. PT IS ON BED REST AT THIS TIME, BED RIDDEN AT HOME AT BASELINE. REDNESS NOTED TO COCCYX, OPTIFOAM DRESSING APPLIED. PT IN NO APPARENT PAIN AT THIS TIME PER FLACC. IV TO LA AND RAC PATENT, CDI, SL. BED IN LOWEST POSITION, CALL LIGHT IN REACH.
[2020-09-21 17:25] VITALS: BP 163/61
--- NOTE | 2020-09-21 18:14 | NUR ---
PT SITTING UP, DRINKING REQUESTED APPLE JUICE, REFUSES TO EAT FULL DINNER. PT IS MORE ALERT AT THIS TIME, STILL A/OX1, BUT ABLE TO MUMBLE SOME NEEDS. BREATHING E/U ON RA, IN NO ACUTE RESP DISTRESS. IV TO LAC AND AND LAC PATENT, CDI, INFUSING ERYTHROMYCIN DOSE PER EMAR. PT REPORTS NO PAIN AT THIS TIME. NO FURTHER CONCERNS VOICED. BED IN LOWEST POSITION, CALL LIGHT IN REACH. PARTS OF [employer] STILL IN DOWNTIME, DR SOTELO TO READ ECHO RESULTS TOMORROW. PER ICU NURSE, PT MAY GO HOME TOMORROW IF SHE IS DOING WELL, MAY HAVE COLONOSCOPY ON TUESDAY IF SHE WISHES.
[2020-09-21 19:50] VITALS: BP 164/63
[2020-09-21 22:50] VITALS: BP 170/68
--- NOTE | 2020-09-21 23:00 | NUR ---
RECIEVED BLOOD FROM LAB AND WILL BEGIN INFUSING 1 UNIT OF BLOOD TO PT THROUGH LFA 20 G WHICH IS INTACT & PATENT. PRE VITALS WERE TEMP 97.6, BP: 170/68, 97%, HR: 102, RR: 20. WITNESSED PROCEDURE WITH YOSI GERBER. STARTED INFUSION AT 100 ML/HR & WILL INCREASE WHEN PT CAN TOLERATE. WILL MONITOR PT AND RETAKE VITALS IN 15 MINUTES.
[2020-09-21 23:10] VITALS: BP 176/72
--- NOTE | 2020-09-21 23:15 | NUR ---
PT HAS RECIEVED BLOOD FOR 15 MINUTES, PT REMAINED STABLE & DID NOT HAVE ANY COMPLAINTS OF CHILLS, ITCHYNESS, OR DISCOMFORT. RETOOK VITAL SIGNS WHICH WERE TEMP: 97.8, HR: 103, BP: 173/72, RR: 20 & O2 SAT 98%. INCREASED RATE TO 130 ML/HR. WILL CONTINUE TO MONITOR, CALL LIGHT WITHIN REACH & BED IN LOWEST POSITION.
[2020-09-22 01:30] VITALS: BP 220/91
--- NOTE | 2020-09-22 01:30 | NUR ---
1 UNIT 300 ML OF BLOOD TRANSFUSION HAS BEEN COMPLETE. PT DID NOT EXPERIENCE ANY ADVERSE EFFECTS AND TOLERATED WELL. PT HAS NO COMPLAINTS ABOUT THE TRANSFUSION & IS LYING IN BED CALM. POST VITALS IS TEMP: 97.8, HR: 102, BP: 220/91, RR:19, AND SPO2 97%. WILL CONTINUE TO MONITOR PT THROUGHOUT THE NIGHT. CALL LIGHT WITHIN REACH & BED IN LOWEST POSITION.
--- NOTE | 2020-09-22 05:13 | NUR ---
PT HAS BEEN SHOWING CONSISTENT BLOOD PRESSURE OF ABOVE 180 THROUGHOUT THE NIGHT, IT REACHED 201/83 AT 0500 AFTER BEING TAKEN. PT HAS NO COMPLAINTS OR PAIN. MEDICATED PER EMR APRESALINE TO CONTROL BLOOD PRESSURE. WILL BE RECHECKING AND MONITORING.
[2020-09-22 05:57] VITALS: BP 225/82
--- NOTE | 2020-09-22 06:00 | NUR ---
PT WAS STABLE THROUGHOUT THE NIGHT WITH NO COMPLAINTS OF PAIN. ALL NEEDS WERE MET. PT REMAINED A/O X1 WITH PERIODS OF CONFUSION WHERE SHE NEEDED REORIENTATION. ON TELE #[address] WITH HR AVERAGING 101-103 THROUGHOUT THE NIGHT. BP WAS HIGH ABOVE 170 THROUGHOUT THE NIGHT WHERE THE DECISION TO ADMINISTER HYDRALAZINE EARLY AT 0500 WAS MADE BECUSE BP MAINTAINED OVER 200/83. CURRENTLY ANTIBIOTIC ERTHTROMYCIN RUNNING TO NEW IV SITE RIGHT HAND 22G. D5 NS 1000 ML 70 ML/HR WILL BE CONT RUNNING RIGHT AFTER. PT RECIEVED 1 UNIT PRBC AND TOLERATED WELL. PELAYO INTACT & DRAINING YELLOW URINE. WILL CONTINUE TO MONITOR, AND ENDORSE CARE TO AM RN. CALL LGIHT WITHIN REACH & BED IN LOWEST POSITION.
--- NOTE | 2020-09-22 08:00 | NUR ---
RECEIVED PATIENT AWAKE BUT WITH HER EYES CLOSED AND SHE IS CONFUSED AND TALKS ALOT BUT THE WORDS FLOW AND THEY DO NOT MAKE MUCH SENSE. IV TO THE LEFT ARM IS WITH A TKO BUT THE PUMP NEEDS RESETTING DUE TO OCCUSION. PATIENT HAS BEEN ON BEDREST, ANXIOUS AT TIMES BUT HAS BEEN ABLE TO STAY IN BED DIRRECTED. SHE HAS PULSES PALPABLE TO ALL EXTREMTIES AND MINIMAL TRACE EDEMA NOTED GENERALLY AND HE SKIN IS THIN AND FRAGILE FROM THE IV AND LAB DRAWS AND BRUISING AND REDNESS FROM STICKS SEEN. SHE HAS A PELAYO TO GAVITY AND IRUNE IS JHONNY AND CLOUDY IN APPEARANCE SHE HAS BEEN TOLERATING DIET BUT MINIMAL INTAKE NOTED. SHE HAS NO REPORT OF VOMITING AT THIS TIME. SHE HAS NOT HAD A STOLOL YET TODAY. HER LABS ARE SHOWING THE BUN IS VERY HIGH AND THE CREATININE WELL AT 109.0 AND C2.3. SHE HAS BEEN ON ERYTHROMYCIN IV AND NO ADVERSE REACTION HAS BEEN REPORTED. SHE HAS HAD UNITS OF BLOOD FOR ANEMIA AND IS NEGATIVE ON THE RAPID TEST. HER LAST BLOOD SUGAR WAS AT 72 AND PRIOR THAT SHE HAD HER FLUID HELD FOR ELEVATED BLOOD SUGAR PER REPORT. THE PATIENT HAS IS RECEIVING LASIX PO AND PROTONIX IVP. SHE IS NOTED WITH ELEVATED PTRONON BUT HAS HAD NO HEPARIN DUE TO HER ISSUE WITH THE VOMITING OF BLOOD. SHE HAS BEEN SEEN BY DR SOTELO FOR CARDIOLOGY ADN DR FONTANA FOR THE GI BLEED. WILL CONTINUE TO [facility].
[2020-09-22 08:31] VITALS: BP 121/81
--- NOTE | 2020-09-22 10:23 | NUR ---
RESTARTED ANOTHER IV THE ONE RECEIVED FROM ANIMAL RESEARCHER WAS NOT VIABLE. ANNITA HAS NOW A IV TO SUKH LEFT AC OF 22 GAUGE. TOELRAET DWELL BUT LIKES TO MESS WITH THE SITES AND NEEDS REMINDIG NOT TO PICK AT THE LINE. MAURICIO TGIVEN ALL HER MEDICATIONS AND NOTE DTHE BP IS HIGH DESPITE GETTING SUKH HYDROLAZINE THIS AM EARLIER. CALLED DR FUENTES FOR ORDERS PATIENT IS ON SEVERAL HYPERTENSIVE MEDICATIONS AT HOME. PATIENT HAS BEEN CONFUSED AND TAKING A SALAD OF VARIOUS THINGS. LUGNS ARE DIMINISHED AND NOTED THE APTIENT HAS BEEN ON BEDREST WITH PELAYO TO GRAVITY AND HAS BEEN INCONTINENT OF STOOL SHEDKERWINE [place] AT THIST JENIFFER AND SHE HAS ACTIVE BOWEL SOUNDS. WILL AWAIT DR TRUJILLO CALL BACK.
--- NOTE | 2020-09-22 10:56 | NUR ---
RECEIVED CALL BACK FORM DR CENTENO AND STAFF IS TO COTINUE MEDICATION FROM HOME. ORDWERS PROCESSEDADN AWAITIGN DELIVERY INDICATED. WILL MONITOR FOR EFFECTIVENESS.
--- NOTE | 2020-09-22 11:21 | NUR ---
DR FONTANA INTO SEE THE PATIENT AND NO ACTIVE BLEEDING HAS BEEN REPORTED AND ADVISE TESFAYE FONTANA OF THIS. PATIENT IS VEYR CONFUSED AND NEEDS TO BE REMINDE DTO STASY IN BED AT THIS TIME. IV INTACT AT THIS TIME. NO ADVERSE REACTION TO ANTIBIOTICS NOTED.
[2020-09-22 11:23] LABS: BASOPHIL % 0.4 % (0.2-1.3); PLATELET COUNT 202 x10^3mcL (179-408); RED CELL DISTRIBUTION WIDTH 14.4 % (12.3-17.7)
[2020-09-22 11:37] LABS: CALCIUM 9.3 mg/dL (8.5-10.1); CARBON DIOXIDE 25.9 mmol/L (21-32); CHLORIDE SERUM 102 mmol/L (98-107); CREATININE SERUM 1.6 mg/dL (0.6-1.0); GLUCOSE SERUM 211 mg/dL (74-106); POTASSIUM SERUM 4.1 mmol/L (3.5-5.1); SODIUM SERUM 136 mmol/L (136-145)
--- NOTE | 2020-09-22 12:48 | NUR ---
Initial Nutrition Assessment: JunaidA Dawna Serrano - 85/F Dx: Gastrointestinal Bleed PMHx: DM, HTN, CABG, HLD, CAD with stent placements, hypothyroidism, GI bleed, Gastritis PSHx: stent placement, recent one last dec Labs: (09/20) H/H 7.5/23L, BUN 101H, CR 2.1H, BG 202H, POCBG 228/158H, CA 8.2L, TROP 0.364H, ALB 2.3L Meds: Pletal, Senoket, Lasix, Neurotonin, Protonix, Synthroid, Lactulose, D5, Atrivan, Humulin, [place] Diet: Full Liquids/ CCHO PO intake since admission: only recorded clear liquid dinner on 09/20 of 100% Ht: 144.78cm/ 4'8" Wt: 52kg/ 114# BMI: 24.8kg/m2 Bed scale: not working IBW: 43kg/ 95# %IBW: 120% UBW: 96# per patient, forgetful Age: 85 Food Allergies: NKFA per pt Skin condition: warm dry intact Gianni: 15 Edema: no edema present Last BM: 09/19, active bowel sounds Per H&P: 85 YO FEMALE H/O CAD HTN DM C/O EPISODE OF VOMITING BLOOD AT HOME. SHE ARRIVED AT THE ED, HAD ANOTHER EPISODE. SHE HAD WORK UPS DONE, HG WAS 7.2. SHE WAS PLACED ON IV FLUID, PRBC AND WAS TRANSFERRED TO THE ICU. RD Note (09/22/20): Patient visited at bedside, she was trying to get out of bed legs coming off sides, convinced to stay in bed and told RN. She was alert and oriented but did not know where she was, saying she was at home. Her breakfast tray was at bedside (ate her applesauce and cream of wheat) and she reported having good appetite. Her record shows a clear liquid meal of 100% no other meals. RN reports she eats very little. Patient reports no n/v but occasional diarrhea, she is on lactulose. Findings of esophagitis. D/C summary just entered, will recommend continuing diet and advancement when appropriate, no ONS added at this time already receives Glucerna TID. Will monitor. Problem with: N/V/D/C: denied per RN and pt Problems with: Chewing: Swallowing: none per patient, on full liquids Current appetite: tolerating diet per RN but very minimal Recent wt change: not sure %wt change: n/a Vitamin/Supplement use: unsure Special diet at home: unsure, pt forgetful Physical activity: none Nutrition education given (specify specific nutrition education and handout given): no patient was slightly confused Food-drug interactions? Education given? No, not appropriate Estimated Nutritional Needs Based on ideal (43kg) body weight Energy: 1290 - 1505 kcal/day (30 - 35 kcal/kg) Protein: 43 - 52 g/day (1.0 - 1.2 g/kg) Fluid: 1290 - 1505 mL/day (1 mL/kcal) Nutrition Diagnosis: Inadequate oral intake related to gastrointestinal dysfunction aeb new findings of esophagitis, less than 50% of breakfast eaten, on full liquids Intervention 1. When medically appropriate consider diet advancement to a CCHO/ Cardiac diet. Monitor/Evaluate Goal: PO intake at least 75% of estimated needs Monitor: PO intake, Labs, GI function, diet advancement F/U in 2-3 days as high risk
--- NOTE | 2020-09-22 12:49 | NUR ---
1. When medically appropriate consider diet advancement to a CCHO/ Cardiac diet.
[2020-09-22 13:05] VITALS: BP 228/82
--- NOTE | 2020-09-22 14:00 | NUR ---
PATIENT RESTING ON AND OFF AND ENCOURAGED OOB MORE OFTEN. PATIENT WAS GIVEN MOTRIN AND TYLENOL AND EFFECTIVE AT THIS TIEM. JACKELINE OUTPUT IS ABOUT 100CC EACH TIME EMPTIED AND THE FLUID IS CLEAR PEACHY PINK IN COLOR. NO INFECTION NOTED.
[2020-09-22 14:19] VITALS: BP 228/82
--- NOTE | 2020-09-22 16:30 | NUR ---
BLOOD SUGAR AT DINNER AT 305 AND GAVE 5 UNIGTS OF REGULAR. HAS HAD A STICKY BLACK SOFT STOOL
[2020-09-22 17:22] VITALS: BP 104/48
--- NOTE | 2020-09-22 18:11 | NUR ---
JAN ALCANTARFERED BU[facility] TO [place] WITH MORST OF HER BELONGINGS. FOUND THAT HER PHONE WAS NOT IN HER BAG BUT THEAT STAFF BROUGHT IT TO THE STATION FOR [employer] KEEPING WWILL CALL FAMILY TO PICK IT UP.
--- NOTE | 2020-09-22 18:31 | NUR ---
BLOOD SUGAR AT 1630 AT 117 AND NO COVERAGE WAS INDICATED.
--- NOTE | 2020-09-22 18:31 | NUR ---
PATIENT TRNSFERED BUY [facility] TO [place] WITH MOST OF HER BELONGINGS. FOUND THAT HER PHONE WAS NOT IN HER BAG BUT THEAT STAFF BROUGHT IT TO THE STATION FOR [employer] KEEPING WILL CALL FAMILY TO PICK IT UP.
--- NOTE | 2020-09-22 19:46 | NUR ---
CALLED FAMILY TO ADVISE THAT WE HAVE THE MOMS PHONE. THEY WILL BE HERE TOMORROW TO BUSINESS SYSTEMS CONSULTANT. ADVISED CHARGE NURSE. KEPT AT THE STATION IN [place].
== END 2020-09-22 17:41 | disposition short-term general hospital (02) | DRG 380 ==
LOC: ED 00:44 → IC 02:34 → IW 02:34 → DU 02:34 → EDBEDREQTM 02:42 → EDBEDREQ 02:42 → EDBEDREQSVC 02:42 → IW 04:26 → DU 09-21 17:15
PROVIDERS: Emergency Medicine; Internal Medicine Gastroenterology; ADMIT Internal Medicine; ATTEND Internal Medicine
PROC: 0W3P8ZZ Control Bleeding in Gastrointestinal Tract, Via Natural or Artificial Opening Endoscopic (ICD-10-PCS; 2020-09-20)
PROC: 30233N1 Transfusion of Nonautologous Red Blood Cells into Peripheral Vein, Percutaneous Approach (ICD-10-PCS; principal; 2020-09-20 12:30)
DX: K22.11 Ulcer of esophagus with bleeding (principal); I21.A1 Myocardial infarction type 2; N17.9 Acute kidney failure, unspecified; K22.6 Gastro-esophageal laceration-hemorrhage syndrome; E11.9 Type 2 diabetes mellitus without complications; I10 Essential (primary) hypertension; I25.10 Atherosclerotic heart disease of native coronary artery without angina pectoris; Z95.5 Presence of coronary angioplasty implant and graft; E03.9 Hypothyroidism, unspecified; D64.9 Anemia, unspecified
CPT/HCPCS: 82962; C9113; G0378; J0171; J1200; J1364; J1610; J1940; J2250; J2310; J2354; J2765; J3010; J3490; J7030; J7040; J7042; J7050; P9016